=== PATIENT | female | born 1990 | race Caucasian/White ===

== ENCOUNTER 2016-08-18 22:19 | Emergency (ER) | payer BC, MEDICAID ==
--- NOTE | 2016-08-18 22:57 | EDM.PDOC ---
ED HPI - General Chief Complaint: [employer] Problem Stated Complaint: vaginal bleeding Time Seen by Provider: 08/18/16 22:30 Source of Information: Reports: Patient History Limitations: Reports: No limitations - History of Present Illness INITIAL COMMENTS - FREE TEXT/NARRATIVE: 26 yo WF [id number] LMP 05/15/2016 (13 weeks) presents to ER with vaginal bleeding which began approx 1 hour ago. Pt reports some mild abdominal cramping followed by episode of vaginal bleeding which began tonight. Pt denies any dysuria, frequency or urgency. Pt denies any severe abdominal pain. Pt denies any previous miscarriages or elective abortions Symptom Onset Date: 08/18/16 Symptom Onset Time: 21:00 Timing/Duration: Reports: Hour(s): (1) Location, : Reports: abdomen Quality: Reports: ache Severity: mild Improves with: Reports: None Associated Symptoms: Reports: vaginal bleeding, mild amount. Denies: vaginal clots, vaginal tissue, vaginal discharge, vaginal fluid, moderate amount, large amount - Related Data Allergies/ADRs: Allergies Allergy/AdvReac Type Severity Reaction Status Date / Time Penicillins Allergy Cannot Verified 06/18/13 22:18 Remember Home Meds: Home Meds Levothyroxine 224 mcg PO ACBREAKFAST 08/18/16 [History] Ondansetron HCl [Zofran] 4 mg PO DAILY 08/18/16 [History] Pnv No.122/Iron/Folic Acid [ Multi Tablet] 1 tab PO DAILY 08/18/16 [ History] Sertraline [Zoloft] 50 mg PO DAILY 08/18/16 [History] metFORMIN [Glucophage] 500 mg PO DAILY 08/18/16 [History] Social & Family History - Tobacco Use Years of Tobacco use: 5 Used Tobacco, but Quit: No - Alcohol Use Days Per Week of Alcohol Use: 1 Number of Drinks Per Day: 0 Total Drinks Per Week: 0 - Recreational Drug Use Recreational Drug Use: No - Living Situation & Occupation Living situation: Reports: with family Occupation: employed ED ROS GENERAL - Review of Systems Review Of Systems: ROS reveals no pertinent complaints other than HPI. Constitutional: Reports: no symptoms HEENT: Reports: No symptoms Respiratory: Reports: No Symptoms Cardiovascular: Reports: No symptoms Endocrine: Reports: no symptoms GI/Abdominal: Reports: No symptoms Musculoskeletal: Reports: no symptoms Skin: Reports: no symptoms Neurological: Reports: No Symptoms Psychiatric: Reports: No symptoms Immunologic: Reports: no symptoms ED EXAM - Physical Exam Exam: See Below Exam Limited By: No limitations General Appearance: alert, WD/WN, no apparent distress Neck: normal inspection, supple, non-tender, full range of motion Respiratory/Chest: no respiratory distress, lungs clear, normal breath sounds, no accessory muscle use, chest non-tender Cardiovascular: normal peripheral pulses, regular rate, rhythm, no edema, no gallop, no JVD, no murmur, no rub GI/Abdominal: normal bowel sounds, soft, non tender, no organomegaly, no distention, no abnormal bruit, no mass (Female) Exam: Other (patient deferred) heart tones: not heard Back Exam: normal inspection, full range of motion, NT Extremities: normal inspection, normal range of motion, non-tender, normal capillary refill, no pedal edema Neurological: alert, oriented, CN II-XII intact, normal cognition, normal gait, normal reflexes, no motor/sensory deficits Psychiatric: normal affect, normal mood Skin Exam: Warm, Dry, Intact, Normal color, No rash Lymphatic: no adenopathy Departure - Departure Time of Disposition: 23:02 Disposition: Home, Self-Care 01 Condition: fair Clinical Impression: Threatened Instructions: Threatened Miscarriage Referrals: Raj Verduzco MD [Physician] - Forms: ED Department Discharge - Assessment/Plan Assessment:: 1. threatened miscarriage 2. vaginal bleeding Plan: 1. discussed options with patient- pt would like a u/s done tonight. It was discussed that we can not do an offical ultrasound tonight. Pt refused HCG or UA and FHT were not present on exam. Pt decided to follow up in clinic in am for further evaluation and treatment with U/S
[2016-08-18 23:27] VITALS: BP 148/97
== END 2016-08-18 23:05 | disposition home or self-care (01) ==
LOC: KA.ED 22:19
DX: O20.0 Threatened abortion (principal); Z88.0 Allergy status to penicillin; Z79.899 Other long term (current) drug therapy
CPT/HCPCS: 99283

== ENCOUNTER 2021-05-21 15:30 | Emergency (ER) | payer BC, MEDICAID ==
[2021-05-21] MEDS: Lidocaine 2% 5 ML SDV INJECT ONE (16:16)
[2021-05-21] MEDS: Bacitracin/Neomycin/Polymyxin B Oint 28.4 GM Tube TOP ONE (16:16)
[2021-05-21 17:24] VITALS: BP 129/85; PULSE 79
== END 2021-05-21 17:00 | disposition home or self-care (01) ==
LOC: KA.ED 15:30
DX: S91.114A Laceration without foreign body of right lesser toe(s) without damage to nail, initial encounter (principal); E11.9 Type 2 diabetes mellitus without complications; Z86.16 Personal history of COVID-19; Z88.0 Allergy status to penicillin; Z79.4 Long term (current) use of insulin; W22.8XXA Striking against or struck by other objects, initial encounter; Y93.01 Activity, walking, marching and hiking
CPT/HCPCS: 12002; 99282; 99282-25